=== PATIENT | male | born 1940 | race Caucasian/White ===

== ENCOUNTER 2020-02-08 09:24 | Day surgery (SDC) | payer OTHER, MEDICARE, BC ==
[~2020-02-08 09:24] MED LIST: Dextrose 5%-0.45% NaCl 1,000 ML IV SCH; Midazolam 1 MG/ML 2 ML SDV ONE; fentaNYL 100 MCG/2 ML SDV ONE
[2020-02-08] MEDS ORDERED: Midazolam 1 MG/ML 2 ML SDV IV ONE ×7 (09:25→10:51)
[2020-02-08] MEDS ORDERED: fentaNYL 100 MCG/2 ML SDV IV ONE ×7 (09:25→10:56)
[2020-02-08] MEDS ORDERED: Sodium Chloride 0.9% 1,000 ML IV SCH (11:12)
--- NOTE | 2020-02-08 15:00 | OR ---
DATE: 02/08/2020 PREOPERATIVE DIAGNOSIS: Personal history of prior colon polyps, family history of polyps. POSTOPERATIVE DIAGNOSIS: Personal history of prior colon polyps, family history of polyps. PROCEDURE: Total colonoscopy. ANESTHESIA: Conscious sedation with IV Versed and fentanyl. SPECIMEN: None. OPERATIVE FINDINGS: Normal colonoscopy. RECOMMENDATIONS: Followup colonoscopy as needed. Since this patient is 79 years old, it is not necessary to rescreen for polyps. PROCEDURE IN DETAIL: After adequate preparation, a colonoscope was inserted into the rectum. This was passed all the way to the cecum. I did have to do multiple maneuvers to get the scope around some of the bends, but this eventually go all the way to the cecum and this was confirmed by visualization of the ileocecal valve, light shining through the right lower quadrant and by palpation. The bowel prep was very good. On withdrawal of the scope, no abnormalities were noted. Anal and rectal examinations were also normal. Air was suctioned from the colon and the scope removed. [facility] /[id number]
[2020-02-08 15:18] VITALS: BP 134/70; PULSE 56
== END 2020-02-08 13:16 | disposition home or self-care (01) ==
LOC: DL.ENDO 09:24
PROVIDERS: ATTEND Surgery
DX: Z12.11 Encounter for screening for malignant neoplasm of colon (principal); I10 Essential (primary) hypertension; Z86.010 Personal history of colon polyps; Z98.890 Other specified postprocedural states; Z80.0 Family history of malignant neoplasm of digestive organs; Z79.899 Other long term (current) drug therapy
CPT/HCPCS: 45378; J2250; J3010; J7030; J7042

== ENCOUNTER 2024-05-10 14:34 | Emergency (ER) | payer MEDICARE, BC ==
[2024-05-10] MEDS ORDERED: Sodium Chloride 0.9% 10 ML Syringe FLUSH PRN (14:59)
[2024-05-10 15:13] LABS: BASOPHILS PERCENT AUTO 0.2 % (0.0-1.0); EOSINOPHILS PERCENT AUTO 0.1 % (1.0-3.0); HEMATOCRIT 41.1 % (40.0-54.0); HEMOGLOBIN 13.9 g/dL (14.0-18.0); LYMPHOCYTES PERCENT AUTO 7.1 % (20.5-50.1); MEAN CORPUSCULAR HEMOGLOBIN 31.8 pg (27.0-34.0); MEAN CORPUSCULAR HGB CONC 33.8 g/dL (33.0-35.0); MEAN CORPUSCULAR VOLUME 94.1 fL (80-100); MONOCYTES PERCENT AUTO 6.6 % (2-8); PLATELET COUNT,PLT 241 10^3/uL (150-450); RED BLOOD CELL COUNT 4.37 10^6/uL (4.6-6.2); WHITE BLOOD CELL COUNT,WBC 16.7 10^3/uL (5.0-10.0)
[2024-05-10 15:31] LABS: PROTHROMBIN TIME 10.4 SEC (9.0-12.0); PTT,PARTIAL THROMBOPLSTIN TIME 23.2 SEC (22.0-34.0)
[2024-05-10 15:33] LABS: A/G RATIO 1.3; ALBUMIN 3.9 g/dL (3.4-5.0); BILIRUBIN TOTAL 0.9 mg/dL (0.2-1.0); BUN/CREATININE RATIO 19.3 (No establ ref range); CALCIUM 9.2 mg/dL (8.5-10.1); CREATININE 1.45 mg/dL (0.70-1.30); EST CRCL DRUG DOSING (CG) 39.86 mL/min; PROTEIN TOTAL,TP 6.9 g/dL (6.4-8.2)
[2024-05-10] MEDS: Iopamidol 612 MG/ML 100 ML Bottle IVPUSH ONE (16:24)
[2024-05-10 16:25] LABS: C-REACTIVE PROTEIN 0.73 ng/dL (<=0.50)
[2024-05-10 16:32] LABS: LACTIC ACID 1.4 mmol/L (0.4-2.0)
[2024-05-10] MEDS: Sodium Chloride 0.9% 1,000 ML IV ONE (17:52)
[2024-05-10] MEDS: metroNIDAZOLE/Normal Saline 500 MG in Premix Bag 1 BAG IV ONE (18:31)
[2024-05-10] MEDS: Ciprofloxacin in D5W 400 MG in Premix Bag 1 BAG IV ONE (18:53)
[2024-05-10 19:15] VITALS: BP 149/69; PULSE 78
== END 2024-05-10 19:38 ==
LOC: DL.ED 14:34
DX: K62.5 Hemorrhage of anus and rectum (principal); K52.29 Other allergic and dietetic gastroenteritis and colitis; K64.8 Other hemorrhoids; I10 Essential (primary) hypertension; Z79.899 Other long term (current) drug therapy; Z79.82 Long term (current) use of aspirin
CPT/HCPCS: 36415; 74019; 74177; 80053; 83605; 84145; 85025; 85610; 85730; 86140; 87040; 96361; 96365; 96368; 99285; J0744; J1836; J7030; Q9967

== ENCOUNTER 2024-07-16 07:03 | Day surgery (SDC) | payer OTHER, MEDICARE, BC ==
[~2024-07-16 07:03] MED LIST changes: -Dextrose 5%-0.45% NaCl 1,000 ML IV SCH; +Midazolam 1 MG/ML 2 ML SDV IV ONE; +fentaNYL 100 MCG/2 ML SDV IV ONE
[2024-07-16] MEDS: Dextrose 5%-0.45% NaCl 1,000 ML IV SCH (07:24)
[2024-07-16] MEDS: fentaNYL 100 MCG/2 ML SDV IV ONE ×3 (07:44→07:56)
[2024-07-16] MEDS: Midazolam 1 MG/ML 2 ML SDV IV ONE ×3 (07:44→07:57)
[2024-07-16 09:19] VITALS: BP 151/59; PULSE 51
== END 2024-07-16 09:31 | disposition home or self-care (01) ==
LOC: DL.ENDO 07:03
PROVIDERS: ATTEND Internal Medicine Gastroenterology
DX: K57.31 Diverticulosis of large intestine without perforation or abscess with bleeding (principal); K64.4 Residual hemorrhoidal skin tags; I10 Essential (primary) hypertension; E78.5 Hyperlipidemia, unspecified; D64.9 Anemia, unspecified
CPT/HCPCS: 45378; J2250; J3010; J7799

== ENCOUNTER 2024-12-17 21:37 | Emergency (ER) | payer OTHER, MEDICARE, BC ==
[2024-12-17] MEDS ORDERED: Sodium Chloride 0.9% 10 ML Syringe FLUSH PRN (21:43)
[2024-12-17] MEDS: Ketorolac 30 MG/ML SDV IVPUSH ONE (22:03)
[2024-12-17 22:05] LABS: BASOPHILS PERCENT AUTO 0.3 % (0.0-1.0); HEMATOCRIT 32.7 % (40.0-54.0); HEMOGLOBIN 10.8 g/dL (14.0-18.0); LYMPHOCYTES PERCENT AUTO 19.8 % (20.5-50.1); MEAN CORPUSCULAR HEMOGLOBIN 31.2 pg (27.0-34.0); MEAN CORPUSCULAR VOLUME 94.5 fL (80-100); NEUTROPHILS PERCENT AUTO 70.9 % (42.2-75.2); PLATELET COUNT,PLT 245 10^3/uL (150-450); RED BLOOD CELL COUNT 3.46 10^6/uL (4.6-6.2)
[2024-12-17 22:18] LABS: APPEARANCE,URINE CLEAR (CLEAR); BILIRUBIN,URINE NEGATIVE (NEGATIVE); COLOR,URINE YELLOW (YELLOW); GLUCOSE,URINE NEGATIVE (NEGATIVE); KETONES,URINE NEGATIVE (NEGATIVE); LEUKOCYTE ESTERASE,URINE NEGATIVE (NEGATIVE); NITRITE,URINE NEGATIVE (NEGATIVE); OCCULT BLOOD,URINE NEGATIVE (NEGATIVE); PROTEIN,URINE NEGATIVE (NEGATIVE); UROBILINOGEN,URINE 0.2 mg/dL (0.2-1.0)
[2024-12-17 22:25] VITALS: BP 149/79; PULSE 61
[2024-12-17 22:28] LABS: A/G RATIO 1.14; ALANINE AMINOTRANSFERASE,ALT 19 U/L (16-63); ALBUMIN 3.3 g/dL (3.4-5.0); ALKALINE PHOSPHATASE 64 U/L (46-116); ANION GAP 12.1 mEq/L (7-13); ASPARTATE AMNIOTRANSFERASE,AST 17 U/L (15-37); BILIRUBIN TOTAL 0.6 mg/dL (0.2-1.0); BLOOD UREA NITROGEN,BUN 27 mg/dL (7-18); BUN/CREATININE RATIO 18.5 (No establ ref range); CALCIUM 8.9 mg/dL (8.5-10.1); CARBON DIOXIDE,CO2 25 mmol/L (21-32); CHLORIDE,CL 105 mmol/L (98-107); CREATININE 1.46 mg/dL (0.70-1.30); ESTIMATED GFR 47 mL/min (>=60); GLUCOSE RANDOM 118 mg/dL (70-99); POTASSIUM,K 5.1 mmol/L (3.5-5.1); PROTEIN TOTAL,TP 6.2 g/dL (6.4-8.2); SODIUM,NA 137 mmol/L (136-145)
[2024-12-17 22:41] LABS: PTT,PARTIAL THROMBOPLSTIN TIME 23.6 SEC (22.0-34.0)
[2024-12-17] MEDS: fentaNYL 100 MCG/2 ML SDV IVPUSH ONE (22:53)
== END 2024-12-17 23:35 ==
LOC: DL.ED 21:37
DX: S72.002A Fracture of unspecified part of neck of left femur, initial encounter for closed fracture (principal); I10 Essential (primary) hypertension; E78.00 Pure hypercholesterolemia, unspecified; Z79.899 Other long term (current) drug therapy; Y93.02 Activity, running; W01.0XXA Fall on same level from slipping, tripping and stumbling without subsequent striking against object, initial encounter
CPT/HCPCS: 36415; 51702; 73700; 80053; 81003; 83735; 85025; 85610; 85730; 96374; 96375; 99284; 99285; J1885; J3010